=== PATIENT | male | born 1930 | race Caucasian/White ===

== ENCOUNTER 2018-03-21 21:28 | Emergency (ER) | payer MEDICARE, BC ==
[2018-03-21 21:51] VITALS: O2SAT 96
[2018-03-21 23:26] VITALS: RESP 20
[2018-03-21 23:27] VITALS: BP 153/77; PULSE 87; TEMP 97.6
== END 2018-03-22 00:01 | DRG 561 ==
LOC: ED 21:28
DX: S72.001D Fracture of unspecified part of neck of right femur, subsequent encounter for closed fracture with routine healing (principal)
CPT/HCPCS: 72170; 73502; 99282